=== PATIENT | male | born 1970 | race Caucasian/White ===

== ENCOUNTER 2016-12-16 17:26 | Emergency (ER) | payer OTHER ==
[~2016-12-16] VITALS: Ht 188 cm; Wt 95.0 kg
[2016-12-16 17:41] VITALS: BP 150/93; PULSE 69; TEMP 36.7; O2SAT 97; Ht 188 cm; Wt 95.0 kg
[2016-12-16] MEDS ORDERED: IBUP-1050 PO (17:51)
--- NOTE | 2016-12-16 18:05 | DIAGNOSTIC IMAGING REPORT ---
LEFT THIRD FINGER 3 VIEWS CLINICAL HISTORY: Third finger pain status post trauma COMPARISON: None. DISCUSSION: There is minimal irregularity the volar base the middle phalanx, likely chronic. Please correlate with the patient's site of pain. The study is otherwise unremarkable. There are no dislocations. IMPRESSION: Minimal irregularity of the volar base the middle phalanx, likely chronic. Please correlate with the patient's site of pain. Electronically signed by: David Hernandez M.D. 12/16/2016 6:03 PM Dictated Date/Time: 12/16/2016 6:01 PM
--- NOTE | 2016-12-16 19:25 | EMERGENCY ROOM VISIT NOTE ---
History Report prepared by Ramiroibmatteo: Vince Chowdhury Under the Supervision of: Dr. Aleksander Brady M.D. First contact with patient: 18:08 Chief Complaint: FINGER PAIN Stated Complaint: FINGER BROKEN,LEFT MIDDLE History of Present Illness The patient is a 46 year old male who presents to the Emergency Room with complaints of constant left middle finger pain beginning shortly prior to arrival. He states that he was cleaning his car when he felt his finger "pop". He states that it appears slightly deformed. The patient denies any open wounds or bleeding. He states "it isn't very painful, it's just not right". Source of History: patient Onset: Shortly prior to arrival Position: finger(s) (left middle ) Timing: constant Review of Systems See HPI for pertinent positives and negatives. A total of ten systems were reviewed and were otherwise negative. Past Medical & Surgical Medical Problems: (1) No Known Active Medical Problems Family History No pertinent family history stated. Social History Smoking Status: Never Smoker Marital Status: Housing Status: lives with family Current/Historical Medications Scheduled PRN Ibuprofen (Advil), 200-600 MG PO Q4H PRN for Pain Allergies Coded Allergies: Sulfa Antibiotics (Unverified Allergy, Unknown, REDNESS, HIVES, 12/16/16) Physical Exam Vital Signs Date Time Temp Pulse Resp B/P Pulse Ox O2 Delivery O2 Flow Rate FiO2 12/16/16 17:41 36.7 69 18 150/93 97 Room Air Physical Exam GENERAL: Awake, alert, well-appearing, in no distress MUSCULOSKELETAL: Left hand was examined and revealed minimal swelling at the DIP joint of the third finger. No significant tenderness. The finger is slightly flexed at the joint. Extensor tendon function reveals inability to extend at the DIP joint. NEURO: Normal sensorium. No sensory or motor deficits noted. SKIN: No rash or jaundice noted. Medical Decision & Procedures ER Provider Diagnostic Interpretation: X-ray: Per my interpretation, radiologist review. LEFT THIRD FINGER 3 VIEWS DISCUSSION: There is minimal irregularity the volar base the middle phalanx, likely chronic. Please correlate with the patient's site of pain. The study is otherwise unremarkable. There are no dislocations. IMPRESSION: Minimal irregularity of the volar base the middle phalanx, likely chronic. Please correlate with the patient's site of pain. Electronically signed by: David Hernandez M.D. 12/16/2016 6:03 PM Dictated Date/Time: 12/16/2016 6:01 PM ED Course 181: The patient was evaluated in room D6. A complete history and physical exam was performed. 183: I reevaluated the patient. Discussed results and discharge instructions: he verbalized understanding and agreement. The patient is ready for discharge. Medical Decision Triage Nursing notes reviewed. The patient's presentation and history were concerning for finger injury. Etiologies such as soft tissue injury, fracture, dislocation, tendon injury, as well as others were entertained. The patient was evaluated. Physical examination reveals a deficit with extension of the DIP joint. The patient was splinted in full extension. He was given ice pack. He had minimal discomfort on examination. He'll use Tylenol and ibuprofen at home. He was given information to follow up with orthopedic hand surgery, Dr. Boston Rosales. The patient will call the office tomorrow for an appointment at the beginning of this week.I gave my usual and customary discussion regarding this issue. By the evaluation outlined above other emergent etiologies such as those listed in the differential, as well as others, were deemed relatively unlikely. The patient and his were informed about the findings as listed above. All questions were answered and they were pleased with the treatment. Return instructions were outlined and the patient was discharged in stable condition. The patient was referred to [facility] for follow-up this week for a recheck of the current condition. The chart was completed utilizing [employer] Speech voice recognition software. Grammatical errors, random word insertions, pronoun errors, and incomplete sentences are an occasional consequence of this system due to software limitations, ambient noise, and hardware issues. Any formal questions or concerns about the content, text, or information contained within the body of this dictation should be directly addressed to the physician for clarification. Impression Primary Impression: Injury of extensor tendon of left hand Scribe Attestation The scribe's documentation has been prepared under my direction and personally reviewed by me in its entirety. I confirm that the note above accurately reflects all work, treatment, procedures, and medical decision making performed by me. Departure Information Dispostion Home / Self-Care Forms HOME CARE DOCUMENTATION FORM, IMPORTANT VISIT INFORMATION, WORK / SCHOOL INSTRUCTIONS Patient Instructions My [facility] Additional Instructions Diagnoses: 1. Extensor tendon injury Ibuprofen(Motrin, Advil) may be used for fever or pain. Use 600mg every six hours as needed. Take with food. Avoid using more than 2400mg in a 24 hour period. Do not use 2400mg per day for more than three consecutive days without physician direction. Prolonged inappropriate use can lead to stomach upset or ulcers. (AND/OR) Acetaminophen(Tylenol) may be used for fever or pain. Use 1000mg every six hours as needed. Avoid using more than 4000mg in a 24 hour period. Ice compresses for 20 minutes at a time four times daily for 2-3 days. Rest and elevate your injury. If your splint feels excessively tight, you have worsening pain, develop numbness or tingling, or your digits appear blue, loosen the tape and then reapply. Return to the ER immediately for any numbness, tingling, severe pain, extreme swelling in the extremity or as needed. Call [facility], [phone], tomorrow to arrange follow up for your injury with Dr. Boston Rosales. Tell the church secretary he is aware.
== END 2016-12-16 18:37 | disposition home or self-care (01) ==
LOC: C.EDB 17:27 → C.EDD 18:37
DX: S66.303A Unspecified injury of extensor muscle, fascia and tendon of left middle finger at wrist and hand level, initial encounter (principal); X58.XXXA Exposure to other specified factors, initial encounter; Y93.89 Activity, other specified; Y92.89 Other specified places as the place of occurrence of the external cause; Y99.8 Other external cause status